=== PATIENT | male | born 1980 | race Caucasian/White ===

== ENCOUNTER → 2020-04-10 08:47 | Outpatient (CLI) | payer BC, SELFPAY ==
--- NOTE | ~2020-04-10 | CT_ITS ---
EXAMINATION: CT abdomen pelvis wo/w con DATE: 04/10/2020 09:35 INDICATION: Gross hematuria. Left flank discomfort. TECHNIQUE: Computed tomography (CT) of the abdomen and pelvis was performed without and subsequently with 130 cc Omnipaque 350 intravenous contrast. Automated exposure control and iterative reconstructi on technique were employed. Exam dose: 2554.76 mGy-cm total exam DLP. COMPARISON: None. FINDINGS: There is mild discoid atelectasis or scarring at the lingula. Normal heart size. No pericar dial or pleural effusion. There is a small sliding hiatal hernia. The liver, gallbladder, bile ducts, spleen, pancreas, pancreatic duct are unremarkable. Normal shape of the adrenal glands. No urinary tract calculus or hydroureteronephrosis. There is a 10 mm upper pole right renal cyst. Normal caliber of the abdominal aorta. No intraperitoneal or retroperitoneal or pelvic mass lesion or adenopathy or ascites. The urinary bladder, prostate gland and seminal vesicles are unremarkable. Normal appendix. No bowel obstruction or intraperitoneal free air. A small fat-containing umbilical hernia. Included skeletal structures are unremarkable. IMPRESSION: No urinary tract calculus or hydroureteronephrosis. 10 mm upper pole right renal cyst Reviewed, dictated and finalized at [facility]. Reviewed, dictated and finalized at [facility]. 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
[2020-04-10 10:32] LABS: Estimated Glomerular Filt Rate > 60
== END ==
PROVIDERS: Visit Provider Urology
DX: R31.0 Gross hematuria (principal); K44.9 Diaphragmatic hernia without obstruction or gangrene; N28.1 Cyst of kidney, acquired; K42.9 Umbilical hernia without obstruction or gangrene
CPT/HCPCS: 74178; Q9967

== ENCOUNTER → 2020-10-31 10:19 | Outpatient (CLI) | payer BC, SELFPAY ==
--- NOTE | ~2020-10-31 | US_ITS ---
EXAMINATION: US retroperitoneal comp EXAM DATE: 10/31/2020 11:39 INDICATION: Left flank pain. Renal Cyst, Acquired . TECHNIQUE: Multiple grayscale and Doppler images of the kidneys were obtained (by a technologist who performed the scan) and subsequently reviewed. Correlation is made to CT urogram 04/10/2020. FINDINGS: Right kidney: There is normal contour and echogenicity. It measures 10.6 x 7.0 x 6.0 centimeters. Po ssible identification of the lesion previously suspected to be renal cyst measuring about 1.5 cm. No suspicious renal lesions identified. There is no hydronephrosis. Left kidney: There is normal contour and echogenicity. It measures 11.5 x 7.0 x 5.6 centimeters. Th ere are no focal renal lesions identified. There is no hydronephrosis. Bladder unremarkable. IMPRESSION: No suspicious renal findings. Reviewed, dictated and finalized at [facility].
== END ==
PROVIDERS: PCP Internal Medicine; Visit Provider Urology
DX: N28.1 Cyst of kidney, acquired (principal)
CPT/HCPCS: 76770

== ENCOUNTER 2022-10-24 10:13 | Emergency (ER) | payer BC, SELFPAY ==
[2022-10-24 10:32] VITALS: BP 176/68; PULSE 93; RESP 18; TEMP 36.6; O2SAT 100
--- NOTE | 2022-10-24 12:09 | ED.GENADULT ---
HPI - General Adult General Chief complaint: Unspecified Stated complaint: rectal pain Time Seen by Provider: 10/24/22 12:09 History of Present Illness HPI narrative: Hemorrhoids for the last few days with severe pain. Related Data Home Medications Medication Instructions Recorded Confirmed testosterone cypionate 200 mg/mL 200 mg IM ONCE 01/14/22 02/20/22 intramuscular oil cholecalciferol (vitamin D3) 1,250 1,250 mcg PO WEEKLY 02/20/22 02/20/22 mcg (50,000 unit) capsule Allergies Allergy/AdvReac Type Severity Reaction Status Date / Time amoxicillin [From Amoxil] AdvReac Unknown Unknown Verified 09/16/22 15:38 erythromycin base AdvReac Unknown Unknown Verified 09/16/22 15:38 Penicillins AdvReac Unknown Unknown Verified 09/16/22 15:38 Review of Systems Review of Systems: All systems reviewed & are unremarkable except as noted in HPI and below PMFSH Past Medical History Medical History Dermatitis of face Erectile dysfunction Hypertension Insomnia Migraines LORAINE on CPAP Psoriasis Thumb joint stiffness Trigger thumb of right hand Family History Family History Father Hypertension Grandparent Breast cancer Social History Social History Smoking status: Current every day smoker Tobacco type: smokeless tobacco Smokeless tobacco user: other Additional smoking assessment comments: Quit Cigarette smoking in 2007. 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 Anal exam showed 1 large thrombosed hemorrhoid externally, 1 cm x 1 cm, bluish discoloration Vascular: Normal peripheral pulses, normal capillary refill. Neurologic: Alert and oriented ?3, LAB ASSISTANT is normal as tested, no gross motor deficit Course Reevaluation(s) Reevaluation #1: Significant improvement after lancing the thrombosed hemorrhoids and getting the blood clot out Date: 10/24/22 Time: 14:13 Vital Signs Vital signs: Vital Signs Temperature 36.6 C 10/24/22 10:32 Pulse Rate 93 10/24/22 10:32 Respiratory Rate 18 10/24/22 10:32 Blood Pressure 176/68 H 10/24/22 10:32 Pulse Oximetry 100 10/24/22 10:32 Oxygen Delivery Room Air 10/24/22 10:32 Temperature 36.6 C 10/24/22 10:32 Pulse Rate 93 10/24/22 10:32 Respiratory Rate 18 10/24/22 10:32 Blood Pressure 176/68 H 10/24/22 10:32 Pulse Oximetry 100 10/24/22 10:32 Oxygen Delivery Room Air 10/24/22 10:32 Procedures Other Procedure Procedure 1: Other Procedure: Thrombosed hemorrhoid, Betadine, 1% lidocaine with epinephrine, 1 cm incision by scalpel #11, fairly large size blood clots 1 cm each got out, immediate relief of the pain. Bleeding stopped. Patient tolerated the procedure well. Medical Decision Making MDM Narrative Medical decision making narrative: Thrombosed hemorrhoids required incision and getting the blood clot out. Patient tolerated the procedure well. To be discharged on Anusol, Colace and sitz bath to follow-up with surgery in 4 days. Differential Diagnosis Differential Diagnosis: Thrombosed hemorrhoids Vital Signs Vital Signs: Vital Signs Temperature 36.6 C 10/24/22 10:32 Pulse Rate
[2022-10-24] MEDS: LIDO 1%/EPINEPHRINE 1:100,000 20 ML VIAL 10 ML INFILTRATE (13:42)
== END 2022-10-24 14:36 | disposition home or self-care (01) ==
PROVIDERS: Emergency Provider Emergency Medicine; PCP Family Medicine
DX: K64.5 Perianal venous thrombosis (principal); I10 Essential (primary) hypertension; G47.33 Obstructive sleep apnea (adult) (pediatric); F17.220 Nicotine dependence, chewing tobacco, uncomplicated
CPT/HCPCS: 12001; 46083; 99283

== ENCOUNTER 2023-02-02 09:10 | Emergency (ER) | payer BC, SELFPAY ==
[2023-02-02 09:21] VITALS: BP 187/109; PULSE 94; RESP 18; TEMP 36.6; O2SAT 98
[2023-02-02 09:34] VITALS: BP 172/104; PULSE 98; RESP 18; O2SAT 98
[2023-02-02] MEDS: HYDROcodone/acetaminophen (*CRX) 5-325 MG TABLET 1 TAB PO (09:42)
[2023-02-02] MEDS: ONDANSETRON HCL ODT 4 MG TABLET PO (09:43)
[2023-02-02 09:44] VITALS: BP 172/104; PULSE 84; RESP 18; O2SAT 99
--- NOTE | 2023-02-02 09:46 | ED.GENADULT ---
HPI - General Adult General Chief complaint: Unspecified Stated complaint: hemorrhoid Time Seen by Provider: 02/02/23 09:19 Source: patient, RN notes reviewed and old records reviewed Mode of arrival: ambulatory Limitations: no limitations History of Present Illness HPI narrative: This is 43 year old male who presents for evaluation of rectal pain. Patient states that he lifts weights. He noticed on Friday when he was sitting on the toilet that he developed rectal pain. He has history of hemorrhoids in the past, and this is similar. He reports minimal bleeding with wiping. He has been using hemorrhoid pads and rectal suppositories for his symptoms. He also reports sitz baths 2-3 times a day. He denies nasuea, vomiting, abdominal pain. He states he was referred to GI 2 months ago but he has not follow up. Related Data Home Medications Medication Instructions Recorded Confirmed testosterone cypionate 200 mg/mL 200 mg IM ONCE 01/14/22 02/20/22 intramuscular oil cholecalciferol (vitamin D3) 1,250 1,250 mcg PO WEEKLY 02/20/22 02/20/22 mcg (50,000 unit) capsule Allergies Allergy/AdvReac Type Severity Reaction Status Date / Time amoxicillin [From Amoxil] AdvReac Unknown Unknown Verified 02/02/23 09:25 erythromycin base AdvReac Unknown Unknown Verified 02/02/23 09:25 Penicillins AdvReac Unknown Unknown Verified 02/02/23 09:25 Review of Systems Review of Systems: All systems reviewed & are unremarkable except as noted in HPI and below PMFSH Past Medical History Medical History (Updated 02/02/23 @ 10:42 by Priti Page MD) Dermatitis of face Erectile dysfunction Hemorrhoids Hypertension Insomnia Low testosterone Migraines LORAINE on CPAP Psoriasis Thumb joint stiffness Trigger thumb of right hand Surgical History Surgical History No history of previous surgery Family History Family History Father Hypertension Grandparent Breast cancer Social History Social History Smoking status: Current every day smoker Tobacco type: smokeless tobacco Smokeless tobacco user: other Additional smoking assessment comments: Quit Cigarette smoking in 2007. 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 HEAD: Normocephalic, atraumatic EYES: EOMI, conjunctiva clear without discharge RESPIRATORY: No respiratory distress, Airway patent, Respirations non-labored, ABDOMEN: Soft, nontender, nondistended, normal active bowel sounds. No masses. No rebound or guarding, No organomegaly. Rectal exam: large hemorrhoid , no bleeding, no bluish, purplish hue , TTP EXTREMITIES: No edema, normal strength with full range of motion. SKIN: Warm, dry, normal color without rash NEURO: Alert and oriented x3. CN 2-12 grossly intact. No focal deficits. PSYCH: Normal mood and affect. HENMT: Face and sinus: transillumination of sinuses normal Course Reevaluation(s) Reevaluation #1: I Discussed with patient that he does have large hemorrhoid . It does not have purplish, bluish hue of typical thrombosed hemorrhoid. I Discussed treat with pain medication , sitz baths, stool softeners. We discussed risk of significant bleeding so he is agreeable to follow up with general surgery for treatment. Date: 02/02/23 Time: 10:39 Consultations Consultation #1: I Discussed case with Dr. Durham with general surgery. I discussed patient with rectal pain from hemorrhoid. Possible thrombose. He states patient can call office tomorrow to follow up as outpatient Da
[2023-02-02 10:33] VITALS: BP 168/113; PULSE 90; RESP 18; O2SAT 98
[2023-02-02] MEDS: LIDOCAINE HCL 2% JELLY 5 ML TUBE 1 APPLIC MUCOUS MEM (10:37)
== END 2023-02-02 10:56 | disposition home or self-care (01) ==
PROVIDERS: Emergency Provider General Practice; PCP Family Medicine
DX: K64.5 Perianal venous thrombosis (principal); I10 Essential (primary) hypertension; G47.33 Obstructive sleep apnea (adult) (pediatric); L40.9 Psoriasis, unspecified; F17.220 Nicotine dependence, chewing tobacco, uncomplicated
CPT/HCPCS: 99283; A9270

== ENCOUNTER 2023-11-13 04:57 | Emergency (ER) | payer BC, SELFPAY ==
--- NOTE | ~2023-11-13 | XR_ITS ---
Left ankle Technique: AP, oblique, and lateral views were obtained. Clinical History: Pain Findings: No acute fracture or dislocation is seen. Osseous alignment is anatomic. Ankle mortise and other visualized joint spaces are preserved. Soft tissues are otherwise unremarkable. Impression: Unremarkable left ankle. Reviewed, dictated and finalized at location . Impression: Unremarkable left ankle.
[2023-11-13 05:00] VITALS: BP 161/104; PULSE 91; RESP 17; TEMP 36.4; O2SAT 96
--- NOTE | 2023-11-13 05:34 | ED.LOWEXIN ---
HPI - Extremity Injury (Lower) General Chief Complaint: Extremity Injury, Lower Stated Complaint: I think I broke my left ankle Time Seen by Provider: 11/13/23 05:01 History of Present Illness HPI Narrative: Patient is a 43-year-old male who presents ER with concerns for a broken left ankle. He was walking down the steps when he slipped and twist his ankle. He felt a crunch. He has been able to bear weight. No numbness or tingling. No additional concerns. Related Data Home Medications Medication Instructions Recorded Confirmed testosterone cypionate 200 mg/mL 200 mg IM ONCE 01/14/22 10/22/23 intramuscular oil Allergies Allergy/AdvReac Type Severity Reaction Status Date / Time amoxicillin [From Amoxil] AdvReac Unknown Unknown Verified 11/13/23 05:10 erythromycin base AdvReac Unknown Unknown Verified 11/13/23 05:10 Penicillins AdvReac Unknown Unknown Verified 11/13/23 05:10 Review of Systems Constitutional: Constitutional: Reports no additional constitutional complaints Musculoskeletal: Musculoskeletal: Reports arthralgias and Reports joint swelling Neurologic: Reports system reviewed and no additional complaints, except as documented [facility] Past Medical History Medical History (Updated 11/13/23 @ 05:35 by Warner Urrutia MD) Acne Dermatitis of face Erectile dysfunction Hemorrhoids Hypertension Insomnia Low testosterone Migraines LORAINE on CPAP Psoriasis Thumb joint stiffness Trigger thumb of right hand Surgical History Surgical History No history of previous surgery Family History Family History Father Hypertension Grandparent Breast cancer Social History Social History Smoking status: Former smoker Tobacco type: smokeless tobacco Smokeless tobacco user: other Additional smoking assessment comments: Quit Cigarette smoking in 2007. 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 HEAD: Normocephalic, atraumatic.mal peripheral pulses. EXTREMITIES: Left ankle with swelling and tenderness over bilateral malleoli. No brusing. NV intact. SKIN: Warm, dry, no rash. NEURO: Alert and oriented x3. PSYCH: Normal mood and affect. Course Course Emergency Course: Informed of results. D/c home with NSAID's and RICE. Recommend purchasing a splint. Vital Signs Vital signs: Vital Signs Temperature 97.6 F 11/13/23 05:00 Pulse Rate 91 11/13/23 05:00 Respiratory Rate 17 11/13/23 05:00 Blood Pressure 161/104 H 11/13/23 05:00 Pulse Oximetry 96 11/13/23 05:00 Oxygen Delivery Room Air 11/13/23 05:00 Temperature 97.6 F 11/13/23 05:00 Pulse Rate 91 11/13/23 05:00 Respiratory Rate 17 11/13/23 05:00 Blood Pressure 161/104 H 11/13/23 05:00 Pulse Oximetry 96 11/13/23 05:00 Oxygen Delivery Room Air 11/13/23 05:00 MDM - Extremity Injury (Lower) Imaging Data Radiologist's impression: ITS Impressions Ankle X-Ray 11/13/23 05:41 Impression: Unremarkable left ankle. Discharge Plan Discharge Clinical Impression: Ankle sprain Patient Disposition: Home, Self-Care Condition: Stable Instructions: Ankle Sprain (ED), P.R.I.C.E. Treatment (ED)
[2023-11-13] MEDS: NAPROXEN 375 MG TABLET PO (06:04)
== END 2023-11-13 06:13 | disposition home or self-care (01) ==
PROVIDERS: Emergency Provider Emergency Medicine; PCP Family Medicine
DX: S93.402A Sprain of unspecified ligament of left ankle, initial encounter (principal); I10 Essential (primary) hypertension; G47.33 Obstructive sleep apnea (adult) (pediatric); L40.9 Psoriasis, unspecified; F17.220 Nicotine dependence, chewing tobacco, uncomplicated; X50.9XXA Other and unspecified overexertion or strenuous movements or postures, initial encounter
CPT/HCPCS: 73610; 99283; A9270

== ENCOUNTER 2023-12-23 15:00 | Outpatient (RCR) | payer BC, SELFPAY ==
--- NOTE | 2023-12-05 08:00 | PTOPEVAL1 ---
Assessment and note entered by Jody Rondon, PT Evaluation Information Assessment Status Evaluation Diagnosis S93.409A Onset approx 3 weeks ago Subjective Information Pt reports pain to L ankle due to missing a step and he tried to prevent a complete fall resulting to twisting the ankle inward. He states that a PT at his work recommended wrapping, and using cam boot when walking at work. he stopped wearing it when the swelling decreased. He said he is feeling more pain now that the swelling is down. Assessment PT Clinical Summary Pt is a 43 yo male who presents to therapy with L ankle sprain, increased pain with resisted inversion. 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 Skilled PT necessary to address deficits and reduce risk for further injuries. Plan of Care Interventions Electrical Stimulation,Gait Training,Hot Pack/Cold Pack,Intermittent Compression,Manual Therapy, Neuro Re-education,Patient/Caregiver Education, Therapeutic Activities,Therapeutic Exercise, Ultrasound Other Interventions Taping PT Services Indicated Yes Treatment Frequency and 2x/wk x 6 visits Duration These treatments will address the objective and functional deficits as defined above. The patient will be advanced safely and appropriately in order for the patient to progress towards his/her prior level of function. Additional exercises will be introduced and as well as a comprehensive home exercise program upon discharge, if needed, ?to ensure carryover of functional gains achieved in the clinic. This treatment plan has been reviewed and agreement upon by the patient.
--- NOTE | 2023-12-05 10:43 | OPREHPOC ---
Outpatient Therapy Plan of Care This is a Multidisciplinary Plan of Care that may contain components documented by all disciplines (PT, OT, and ST.) PT Problem 1 PT Problem #1 Knowledge Deficit PT Goal 1 Goal Pt will demo HEPs for BLE and core strengthening indep Target Visit 6 Progress Met PT Problem 2 PT Problem #2 Edema PT Goal 1 Goal Pt will demo 1-2cm difference to B ankle circumference Target Visit 6 PT Problem 3 PT Problem #3 Impaired Range of Motion PT Goal 1 Goal Pt will demo WNL ROM values of bilat ankle Target Visit 6 PT Problem 4 PT Problem #4 Impaired Strength PT Goal 1 Goal Pt will demo 5/5 B ankle strength. Target Visit 6
--- NOTE | 2024-02-06 10:28 | PTOPDC ---
Assessment and note entered by Mckenna Connor, PT Evaluation Information Assessment Status Discharge - Pt Not Present Diagnosis S93.409A Onset approx 3 weeks ago Subjective Information Pt reports pain to L ankle due to missing a step and he tried to prevent a complete fall resulting to twisting the ankle inward. He states that a PT at his work recommended wrapping, and using cam boot when walking at work. he stopped wearing it when the swelling decreased. He said he is feeling more pain now that the swelling is down. Assessment PT Clinical Summary Pt attended 6 visits including evaluation for his ankle sprain. His last visit was he was a no-show . After multiple unsuccessful attempts to contact patient to schedule follow-up visits pt is being discharged due to nonattendance. Plan of Care PT Services Indicated No
== END 2024-02-06 10:39 | disposition home or self-care (01) ==
LOC: ANHHIPT 15:00
PROVIDERS: PCP Physician Assistant Medical; Visit Provider Physician Assistant Medical
DX: S93.409D Sprain of unspecified ligament of unspecified ankle, subsequent encounter (principal)
CPT/HCPCS: 97016; 97035; 97110; 97140; 97161

== ENCOUNTER 2024-04-10 14:21 | Emergency (ER) | payer BC, SELFPAY ==
[2024-04-10 14:29] VITALS: BP 169/107; PULSE 114; RESP 18; TEMP 36.7; O2SAT 97
--- NOTE | 2024-04-10 14:35 | PC.NURSE ---
PT STATES HIS BP IS HIGH DUE TO DRINKING AN ENERGY DRINK AND WORKING OUT
[2024-04-10 14:36] VITALS: BP 169/107; PULSE 114; RESP 18; TEMP 36.7; O2SAT 97
--- NOTE | 2024-04-10 14:38 | ED.GENADULT ---
HPI - General Adult General Chief complaint: Upper Respiratory Infection Stated complaint: sinus infections symptoms Time Seen by Provider: 04/10/24 14:38 Source: patient Mode of arrival: ambulatory Limitations: no limitations History of Present Illness HPI narrative: 44-year-old male patient presents to [facility] with complaints of sinus symptoms for the past 5 days. Denies fevers, body aches or chills. Patient states he has had a lot of congestion and had press sugar and pain to the teeth. Patient states he has feels pressured but in the ears and has had tubes twice. Patient denies any chest pain or shortness of breath patient states mild cough but nothing productive. patient is also requesting a refill of his sumatriptan since the sinus congestion is triggering his migraines. Related Data Allergies Allergy/AdvReac Type Severity Reaction Status Date / Time Penicillins Allergy Unknown Unknown Verified 04/10/24 14:36 amoxicillin [From Amoxil] AdvReac Unknown Unknown Verified 11/25/23 13:15 erythromycin base AdvReac Unknown Gastrointestinal Verified 04/10/24 14:36 Upset Review of Systems Review of Systems: CONSTITUTIONAL: Denies fever, chills, or sweats. EYES: Denies visual changes, redness, or discharge. ENT: Denies rhinorrhea, Positive congestion, sore throat, or otalgia. CARDIOVASCULAR: Denies chest pain, palpitations, or edema. RESPIRATORY: Denies cough or dyspnea. GASTROINTESTINAL: Denies abdominal pain, nausea, vomiting, or diarrhea. GENITOURINARY: Denies dysuria or hematuria. SKIN: Denies rash or itching. MUSCULOSKELETAL: Denies back pain, joint pain, or myalgia. NEUROLOGIC: Positive headache, denies numbness, or weakness. PSYCHIATRIC: Denies anxiety or depression. [facility] Past Medical History Medical History Acne Dermatitis of face Erectile dysfunction Hemorrhoids Hypertension Insomnia Low testosterone Migraines LORAINE on CPAP Psoriasis Thumb joint stiffness Trigger thumb of right hand Surgical History Surgical History No history of previous surgery Family History Family History Father Hypertension Grandparent Breast cancer Social History Social History Smoking status: Former smoker Tobacco type: smokeless tobacco Smokeless tobacco user: other Additional smoking assessment comments: Quit Cigarette smoking in 2007. 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 There is no relevant family history pertinent to the presenting complaint. Exam Narrative: GENERAL: Well-appearing, well-nourished, and in no acute distress. HEAD: Normocephalic, atraumatic. EYES: PERRLA and EOMI. ENT: Nares with erythema edema noted bilaterally, no rhinorrhea or epistaxis. Mucous membranes moist. posterior pharynx with no erythema, tonsillar enlargement, exudates or lesions present. Bilateral TMs are clear with no erythema or foreign bodies the canal. There is some fluid noted behind bilateral TMs NECK: Supple. No lymphadenopathy CHEST: Clear to auscultation. No respiratory distress. HEART: Regular rate and rhythm. No murmur heard. Normal peripheral pulses. ABDOMEN: Soft, nontender, nondistended, normal active bowel sounds. EXTREMITIES: Normal range of motion. No edema. SKIN: Warm, dry, no rash. NEURO: No focal deficits. Alert and oriented x3. Course Course Level of Care: Express Care Visit Vital Signs Vital signs: Vital Signs Temperature 36.7 C 04/10/24 14:29 Pulse Rate 114 H 04/10/24 14:29 Respiratory Rate 18 04/10/24 14:29 Blood Pressure 169/107 H 04/10/24 14:29 Pulse Oximetry 97 04/10/24 14:29 Oxygen Delivery Room Air 04/10/24 14:29 Temperature 36.7 C 04/10/24 14:36 Pulse Rate 114 H 04/10/24 14:36 Respiratory Rate 18 04/10/24 14:36 Blood Pressure 169/107 H 04/10/24 14:36 Pulse Oximetry 97 04/10/24 14:36 Oxygen Delivery Room Air 04/10/24 14:36 vital signs reviewed. The patient has been informed that they may have pre-hypertension or Hypertension based on a BP reading in the department. I recommend that the patient call the primary care provider listed on their discharge instructions or a physician of their choice this week to arrange follow up for further evaluation of possible pre-hypertension or Hypertension Medical Decision Making MDM Narrative Medical decision making narrative: plan of care for patient is discharge home with the Medrol Dosepak to help with the sinusitis symptoms and encouraged him to take a daily antihistamine and Flonase. Will provide refill for his sumatriptan until he can see his doctor for a refill. Differential Diagnosis Differential Diagnosis: Differential diagnosis: Allergic rhinitis, chronic sinusitis, tonsillitis, acute sinusitis, infectious mononucleosis, seasonal influenza, pertussis, diphtheria, meningococcal disease, viral syndrome, viral bronchitis, RSV, COVID-19 Vital Signs Vital Signs: Vital Signs Temperature 36.7 C 04/10/24 14:29 Pulse Rate 114 H 04/10/24 14:29 Respiratory Rate 18 04/10/24 14:29 Blood Pressure 169/107 H 04/10/24 14:29 Pulse Oximetry 97 04/10/24 14:29 Oxygen Delivery Room Air 04/10/24 14:29 Temperature 36.7 C 04/10/24 14:36 Pulse Rate 114 H 04/10/24 14:36 Respiratory Rate 18 04/10/24 14:36 Blood Pressure 169/107 H 04/10/24 14:36 Pulse Oximetry 97 04/10/24 14:36 Oxygen Delivery Room Air 04/10/24 14:36 Critical Care Time Critical Care Time Critical Care Time: No Discharge Plan Discharge Clinical Impression: Acute viral sinusitis Patient Disposition: Home, Self-Care Condition: Stable Instructions: Antibiotic Form, Sinusitis (ED) Additional Instructions: Viral illness may last between 7-12days; antibiotic is NOT recommended at this time. Recommend antihistamine such as Benadryl at night time and Claritin/Zyrtec/Verna during the day Cough syrup may cause drowsiness; avoid driving or take it at night time. Also, recommend symptomatic treatment includes: rest, fluids, and increase humidity of the air at home. Recommend Acetaminophen or nonsteroidal anti-inflammatory agents (NSAIDs) as directed in the bottle to reduce fever and/pain/headache. Avoid smoking/second-hand smoke. Limit visits to areas with large crowds. Please schedule a follow-up visit with your personal physician for further evaluation and treatment within 3-5days. Including recheck and discussion of your blood pressure. If your symptoms persist, change or worsen significantly before you can contact your personal physician then please, without delay, go to the emergency department for further evaluation. Prescriptions: New methylprednisolone 4 mg tablets,dose pack See Rx Instructions PO .COMPLEX Qty: 21 0RF Rx Instructions: for 6 days sumatriptan succinate 100 mg tablet See Rx Instructions .ROUTE .COMPLEX Qty: 10 0RF Rx Instructions: take 1 tab at onset of headache; if no relief, may repeat 1 tab after at least 2 hrs; max = 2 tabs/24 hrs No Action sumatriptan succinate 100 mg tablet See Rx Instructions .ROUTE .COMPLEX Qty: 9 0RF Dose Instruction: TAKE 1 TABLET BY MOUTH AT ONSET OF HEADACHE. IF NO RELIEF REPEAT 1 TAB IN HOURS (MAX 2 TABS/24 HR) Rx Instructions: TAKE 1 TABLET BY MOUTH AT ONSET OF HEADACHE. IF NO RELIEF REPEAT 1 TAB IN HOURS (MAX 2 TABS/24 HR) Follow-up/Referrals: Jessy Reyes PA-C [Primary Care Provider] - Time of Disposition: 14:48
== END 2024-04-10 15:04 | disposition home or self-care (01) ==
PROVIDERS: Emergency Provider Nurse Practitioner Family; PCP Physician Assistant Medical
DX: J01.90 Acute sinusitis, unspecified (principal); Z87.891 Personal history of nicotine dependence; I10 Essential (primary) hypertension; G47.33 Obstructive sleep apnea (adult) (pediatric)
CPT/HCPCS: 99213; G0463